=== PATIENT | female | born 1935 | race Caucasian/White ===

== ENCOUNTER 2020-04-29 15:44 | Outpatient (REF) | payer MEDICARE, SELFPAY ==
[2020-04-29 18:17] LABS: Anion Gap 13 (12-20); Blood Urea Nitrogen 19 mg/dL (9-16); Calcium 8.4 mg/dL (8.4-10.2); Carbon Dioxide 24 mmol/L (22-29); Chloride 103 mmol/L (96-108); Estimated Glomerular Filt Rate 33; Glucose Random 93 mg/dL (60-115); Potassium 4.2 mmol/l (3.3-5.1); Sodium 136 mmol/L (135-145)
[2020-04-29 18:30] LABS: Uric Acid 5.3 mg/dL (2.4-5.7)
== END 2020-04-29 15:45 | disposition home or self-care (01) ==
LOC: HO.MANLR 15:44
PROVIDERS: PCP Physician Assistant; Visit Provider Physician Assistant
DX: M11.80 Other specified crystal arthropathies, unspecified site (principal); I50.30 Unspecified diastolic (congestive) heart failure
CPT/HCPCS: 80048; 84550

== ENCOUNTER 2020-05-06 10:52 | Outpatient (REF) | payer MEDICARE, SELFPAY ==
[2020-05-06 13:11] LABS: Anion Gap 15 (12-20); Blood Urea Nitrogen 17 mg/dL (9-16); Calcium 8.6 mg/dL (8.4-10.2); Carbon Dioxide 24 mmol/L (22-29); Chloride 102 mmol/L (96-108); Estimated Glomerular Filt Rate 32; Glucose Random 112 mg/dL (60-115); Sodium 137 mmol/L (135-145)
== END 2020-05-06 10:53 | disposition home or self-care (01) ==
LOC: HO.MANLR 10:52
PROVIDERS: PCP Physician Assistant; Visit Provider Physician Assistant
DX: M11.80 Other specified crystal arthropathies, unspecified site (principal); I50.30 Unspecified diastolic (congestive) heart failure
CPT/HCPCS: 80048

== ENCOUNTER 2020-05-16 10:12 | Outpatient (REF) | payer MEDICARE, SELFPAY ==
[2020-05-16 11:58] LABS: Anion Gap 14 (12-20); Blood Urea Nitrogen 20 mg/dL (9-16); Calcium 8.6 mg/dL (8.4-10.2); Carbon Dioxide 25 mmol/L (22-29); Chloride 105 mmol/L (96-108); Estimated Glomerular Filt Rate 33; Glucose Random 124 mg/dL (60-115); Potassium 4.2 mmol/l (3.3-5.1); Sodium 140 mmol/L (135-145)
== END 2020-05-16 10:13 | disposition home or self-care (01) ==
LOC: HO.MANLR 10:12
PROVIDERS: PCP Internal Medicine; Visit Provider Physician Assistant
DX: M11.80 Other specified crystal arthropathies, unspecified site (principal); I50.30 Unspecified diastolic (congestive) heart failure
CPT/HCPCS: 80048

== ENCOUNTER 2020-06-06 11:01 | Outpatient (REF) | payer MEDICARE, SELFPAY ==
[2020-06-06 13:53] LABS: Anion Gap 15 (12-20); Blood Urea Nitrogen 23 mg/dL (9-16); Calcium 8.9 mg/dL (8.4-10.2); Carbon Dioxide 26 mmol/L (22-29); Chloride 107 mmol/L (96-108); Estimated Glomerular Filt Rate 31; Glucose Random 99 mg/dL (60-115); Potassium 3.9 mmol/l (3.3-5.1); Sodium 144 mmol/L (135-145)
== END 2020-06-06 11:02 | disposition home or self-care (01) ==
LOC: HO.MANLR 11:01
PROVIDERS: PCP Internal Medicine; Visit Provider Physician Assistant
DX: M11.80 Other specified crystal arthropathies, unspecified site (principal); I50.30 Unspecified diastolic (congestive) heart failure
CPT/HCPCS: 36415; 80048

== ENCOUNTER 2020-08-04 11:43 | Outpatient (REF) | payer MEDICARE, SELFPAY ==
[2020-08-04 12:38] LABS: MANUAL DIFF FLAG NO
[2020-08-04 12:45] LABS: Basophils Absolute Auto 0.1 X10*3/uL (0.0-0.2); Basophils Percent Auto 0.6 % (0-2); Eosinophils Absolute Auto 0.2 X10*3/uL (0.0-0.4); Eosinophils Percent Auto 2.2 % (0-4); Hematocrit 33.8 % (37-47); Hemoglobin 10.9 g/dl (12.0-16.0); Imm Gran Abs Auto 0.05 X10*3/uL (0.00-0.03); Imm Gran Pct Auto 0.5 % (0.0-0.4); Lymphocytes Absolute Auto 0.9 X10*3/uL (1.2-4.9); Mean Corpuscular HGB Conc 32.2 g/dl (31.0-35.0); Mean Corpuscular Hemoglobin 31.3 pg (27.0-33.0); Mean Corpuscular Volume 97.1 fL (80-98); Mean Platelet Volume 10.5 fL (9.4-12.3); Monocytes Absolute Auto 1.1 X10*3/uL (0.1-1.2); Monocytes Percent Auto 10.7 % (2-11); Neutrophils Absolute Auto 7.9 X10*3/uL (2.0-8.3); Platelet Count 266 X10*3/uL (160-400); Red Blood Count 3.48 X10*6/uL (4.20-5.50); Red Cell Distribution Width 14.4 % (11.0-16.0); White Blood Count 10.2 X10*3/uL (4.8-10.8)
[2020-08-04 13:24] LABS: Alanine Aminotransferase 29 U/L (0-31); Albumin Level 3.9 g/dL (3.5-5.0); Alkaline Phosphatase 108 U/L (39-117); Anion Gap 13 (12-20); Aspartate Amino Transferase 32 U/L (5-31); Bilirubin Total 0.5 mg/dL (0.0-1.0); Blood Urea Nitrogen 26 mg/dL (9-16); Calcium 8.6 mg/dL (8.4-10.2); Carbon Dioxide 26 mmol/L (22-29); Chloride 104 mmol/L (96-108); Estimated Glomerular Filt Rate 28; Glucose Random 101 mg/dL (60-115); Potassium 4.4 mmol/L (3.3-5.1); Sodium 139 mmol/L (135-145); Total Protein 6.3 g/dL (6.5-8.0)
== END 2020-08-04 11:44 | disposition home or self-care (01) ==
LOC: HO.MANLDS 11:43
PROVIDERS: PCP Internal Medicine; Visit Provider Physician Assistant
DX: I48.91 Unspecified atrial fibrillation (principal)
CPT/HCPCS: 36415; 80053; 85025

== ENCOUNTER 2021-03-16 10:21 | Outpatient (REF) | payer MEDICARE, SELFPAY ==
[2021-03-16 11:37] LABS: Basophils Absolute Auto 0.1 X10*3/uL (0.0-0.2); Basophils Percent Auto 0.7 % (0-2); Eosinophils Absolute Auto 0.3 X10*3/uL (0.0-0.4); Eosinophils Percent Auto 3.9 % (0-4); Hemoglobin 11.7 g/dl (12.0-16.0); Imm Gran Abs Auto 0.03 X10*3/uL (0.00-0.03); Imm Gran Pct Auto 0.4 % (0.0-0.4); Lymphocytes Absolute Auto 1.1 X10*3/uL (1.2-4.9); MANUAL DIFF FLAG NO; Mean Corpuscular HGB Conc 32.5 g/dl (31.0-35.0); Mean Corpuscular Volume 98.4 fL (80-98); Mean Platelet Volume 11.4 fL (9.4-12.3); Monocytes Percent Auto 12.1 % (2-11); Neutrophils Absolute Auto 5.8 X10*3/uL (2.0-8.3); Neutrophils Percent Auto 69.9 % (45-73); Platelet Count 259 X10*3/uL (160-400); Red Blood Count 3.66 X10*6/uL (4.20-5.50); Red Cell Distribution Width 13.7 % (11.0-16.0); White Blood Count 8.3 X10*3/uL (4.8-10.8)
[2021-03-16 12:12] LABS: Alanine Aminotransferase 26 U/L (0-31); Albumin Level 3.9 g/dL (3.5-5.0); Alkaline Phosphatase 85 U/L (39-117); Anion Gap 13 (12-20); Aspartate Amino Transferase 27 U/L (5-31); Bilirubin Total 0.5 mg/dL (0.0-1.0); Blood Urea Nitrogen 28 mg/dL (9-16); Calcium 8.9 mg/dL (8.4-10.2); Carbon Dioxide 28 mmol/L (22-29); Chloride 106 mmol/L (96-108); Estimated Glomerular Filt Rate 28; Glucose Fasting 105 mg/dL (60-99); Potassium 3.7 mmol/L (3.3-5.1); Sodium 143 mmol/L (135-145); Total Protein 6.2 g/dL (6.5-8.0)
[2021-03-16 12:31] LABS: Free T4 (Free Thyroxine) 1.35 ng/dL (0.71-1.85)
== END 2021-03-16 10:22 | disposition home or self-care (01) ==
LOC: HO.MANLDS 10:21
PROVIDERS: PCP Internal Medicine; Visit Provider Internal Medicine
DX: E03.9 Hypothyroidism, unspecified (principal); I50.9 Heart failure, unspecified
CPT/HCPCS: 36415; 80053; 84439; 84443; 85025

== ENCOUNTER 2022-03-12 13:33 | Outpatient (REF) | payer MEDICARE, SELFPAY ==
[2022-03-12 18:24] LABS: Alanine Aminotransferase 21 U/L (0-31); Alkaline Phosphatase 108 U/L (39-117); Amylase 54 U/L (28-100); Anion Gap 18 (12-20); Aspartate Amino Transferase 26 U/L (5-31); Bilirubin Total 0.4 mg/dL (0.0-1.0); Blood Urea Nitrogen 22 mg/dL (9-16); C Reactive Protein 0.07 mg/dL (< or = 0.50); Calcium 8.7 mg/dL (8.4-10.2); Carbon Dioxide 21 mmol/L (22-29); Chloride 106 mmol/L (96-108); Estimated Glomerular Filt Rate 31; Gamma Glutamyl Transpeptidase 40 U/L (7-33); Glucose Random 102 mg/dL (60-115); Iron 64 mcg/dL (30-160); Lipase 38 U/L (8-78); Percent Iron Saturation 21 % (15-50); Potassium 3.8 mmol/L (3.3-5.1); Sodium 141 mmol/L (135-145); Total Iron Binding Capacity 303 mcg/dL (228-428); Total Protein 6.3 g/dL (6.5-8.0); Unsaturated Iron Binding 239 ug/dL
[2022-03-12 18:48] LABS: Ferritin 95 ng/mL (10-250)
[2022-03-12 18:54] LABS: Erythrocyte Sedimentation Rate 16 MM/HR (0-20)
== END 2022-03-12 13:34 | disposition home or self-care (01) ==
LOC: HO.MANLDS 13:33
PROVIDERS: Visit Provider Physician Assistant
DX: R19.7 Diarrhea, unspecified (principal)
CPT/HCPCS: 36415; 80053; 82150; 82728; 82977; 83540; 83690; 85652; 86140

== ENCOUNTER 2022-06-11 15:45 | Outpatient (REF) | payer MEDICARE, SELFPAY ==
[2022-06-11 18:06] LABS: Appearance Urine Cloudy; Color Urine Yellow; Glucose Urine UA Negative (Negative); Leukocyte Esterase Urine Large (3+) (Negative); Nitrite Urine Negative (Negative); PH 5.5 (5.0-9.0); UMIC TRIGGER UACC YES; Urine Blood Large (3+) (Negative); Urine Ketones Negative (Negative); Urine Protein Trace mg/dL (Neg-Trace)
[2022-06-11 18:09] LABS: Bacteria Urine None Seen (None Seen); Hyaline Casts Urine 0-2 /LPF (0-2); RBC Urine >20 /HPF (0-2); Squamous Epithelial Cell Urine 0-2 /HPF (0-2); UACC Culture Trigger YES; WBC Urine >50 /HPF (0-5)
== END 2022-06-11 15:46 | disposition home or self-care (01) ==
LOC: HO.MANLDS 15:45
PROVIDERS: Visit Provider Physician Assistant
DX: N10 Acute pyelonephritis (principal)
CPT/HCPCS: 81001; 87086